=== PATIENT | male | born 1950 | race Caucasian/White ===

== ENCOUNTER 2019-05-15 07:37 | Day surgery (SDC) | payer MEDICARE ==
[~2019-05-15] VITALS: Ht 175.3 cm; Wt 87.1 kg
[2019-05-15] MEDS ORDERED: LIDOCAINE 2% 100 MG/5 ML UJET TP ONE (09:27)
[2019-05-15] MEDS ORDERED: fentaNYL 0.05 MG/ML VIAL ONE (09:27)
[2019-05-15] MEDS ORDERED: fentaNYL 0.05 MG/ML VIAL IVP ONE (09:42)
== END 2019-05-15 10:40 | disposition home or self-care (01) ==
LOC: MOR 07:37 → MMU 07:37 → MOR 10:40
PROVIDERS: ATTEND Internal Medicine Gastroenterology
DX: Z12.11 Encounter for screening for malignant neoplasm of colon (principal); D12.8 Benign neoplasm of rectum; E11.9 Type 2 diabetes mellitus without complications; Z90.49 Acquired absence of other specified parts of digestive tract; Z98.890 Other specified postprocedural states; Z79.899 Other long term (current) drug therapy
CPT/HCPCS: 45380; J3010